=== PATIENT | male | born 1955 | race African-American/Black ===

== ENCOUNTER 2016-09-16 12:26 | Emergency (ER) | payer OTHER ==
[~2016-09-16] VITALS: Ht 180.3 cm; Wt 76.2 kg
[2016-09-16] MEDS ORDERED: IV NS 0.9% 1,000 ML ONE (12:45)
[2016-09-16] MEDS ORDERED: ONDANSETRON HCL/PF 4 MG/2 ML VIAL ONE (12:45)
[2016-09-16] MEDS ORDERED: IV SET PRIMARY 1 EA INFUS.SET MC ONE (12:45)
[2016-09-16 12:46] LABS: BASOPHILS % (AUTO) 0.8 % (0.0-2.0); DIFF TOTAL % 100 %; EOSINOPHILS # (AUTO) 0.1 /CMM (0.0-0.7); EOSINOPHILS % (AUTO) 2.3 % (0.0-6.0); HEMATOCRIT 40 % (39-51); HEMOGLOBIN 12.7 g/dL (13.5-17.5); LYMPHOCYTES # (AUTO) 1.1 /CMM (0.8-4.8); LYMPHOCYTES % (AUTO) 26.1 % (20.0-44.0); MEAN CORPUSCULAR HEMOGLOBIN 29 PG (26.0-33.0); MEAN CORPUSCULAR HGB CONC 32 g/dl (31.0-36.0); MEAN CORPUSCULAR VOLUME 92 fL (80-96); MONOCYTES # (AUTO) 0.2 /CMM (0.1-1.30); MONOCYTES % (AUTO) 5.2 % (2.0-12.0); NEUTROPHILS # (AUTO) 2.9 /CMM (1.8-8.9); NEUTROPHILS % (AUTO) 65.6 % (43.0-81.0); PLATELET COUNT (AUTO) 194 /CMM (150-450); RED BLOOD CELL COUNT(AUTO) 4.39 MIL/uL (4.5-6.0); WHITE BLOOD COUNT (AUTO) 4.3 K/uL (4.3-11.0)
[2016-09-16] MEDS ORDERED: IV SET PRIMARY PUMP SET 1 EA INFUS.SET MC ONE (12:55)
[2016-09-16] MEDS ORDERED: Thiamine 100 MG in IV D5W 50 ML IV SCH (13:00)
[2016-09-16] MEDS ORDERED: IV NS 0.9% 1,000 ML BAG IV ONE (13:00)
[2016-09-16] MEDS ORDERED: ONDANSETRON HCL/PF 4 MG/2 ML VIAL IVP ONE (13:00)
[2016-09-16 13:01] LABS: ALBUMIN 3.2 g/dL (3.4-5.0); BILIRUBIN,DIRECT 0.1 mg/dL (0.0-0.2); BILIRUBIN,TOTAL 0.2 mg/dL (0.2-1.0); CALCIUM, SERUM 8.9 mg/dL (8.5-10.1); CREATININE 0.9 mg/dL (0.6-1.3); INDIRECT BILIRUBIN 0.1 mg/dL (0.0-1.1); POTASSIUM 3.3 mmol/L (3.5-5.1); SALICYLATE 3.8 mg/dL (2.8-20.0); TOTAL PROTEIN, SERUM 7.5 g/dL (6.4-8.2)
[2016-09-16 14:35] LABS: KETONES,URINE Negative (NEGATIVE); LEUKOCYTE ESTERASE ,URINE Negative (NEGATIVE)
[2016-09-16 14:36] LABS: ADD UA MICROSCOPIC YES
[2016-09-16 14:38] LABS: WBC,URINE 0-2 /HPF (0-3)
[2016-09-16 14:39] LABS: ADD URINE CULTURE NO
[2016-09-16 14:49] LABS: CANNABINOID, URINE POSITIVE (NEGATIVE); PHENCYCLIDINE SCREEN,URINE NEGATIVE (NEGATIVE)
[2016-09-16 18:40] VITALS: BP 136/74
== END 2016-09-16 18:40 | disposition home or self-care (01) ==
LOC: EDBD 12:29 → ER 12:29
DX: R41.82 Altered mental status, unspecified (principal); E11.9 Type 2 diabetes mellitus without complications; F10.129 Alcohol abuse with intoxication, unspecified; F17.200 Nicotine dependence, unspecified, uncomplicated
CPT/HCPCS: 36415; 80048; 80076; 80305; 80329; 81001; 82962 ×2; 85025; 96365; 96375; 99284; A4606; G0480 ×2; J2405; J7030; Z7610; 81000-TC; G6039-TC; J3411; J7060

== ENCOUNTER 2017-01-11 14:37 | Emergency (ER) | payer OTHER ==
[~2017-01-11] VITALS: Ht 182.9 cm; Wt 77.1 kg
--- NOTE | 2017-01-11 14:46 | NUR ---
pt bibra to er bed 09. found at a restroom at [facility]. known heroin user. pt was found unresponsive. pinpoint pupils. 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 +etoh smell. awaiting md jimenez.
[2017-01-11] MEDS ORDERED: IV SET PRIMARY 1 EA INFUS.SET MC ONE (14:51)
[2017-01-11] MEDS ORDERED: IV NS 0.9% 1,000 ML ONE (14:51)
--- NOTE | 2017-01-11 14:51 | NUR ---
dr bautista at bedside for eval.
[2017-01-11] MEDS ORDERED: IV NS 0.9% 1,000 ML BAG IV ONE (15:00)
[2017-01-11 15:06] LABS: BASOPHILS # (AUTO) 0.1 /CMM (0.0-0.2); BASOPHILS % (AUTO) 0.8 % (0.0-2.0); EOSINOPHILS # (AUTO) 0.2 /CMM (0.0-0.7); HEMATOCRIT 44 % (39-51); HEMOGLOBIN 14.3 g/dL (13.5-17.5); LYMPHOCYTES # (AUTO) 4.9 /CMM (0.8-4.8); LYMPHOCYTES % (AUTO) 69.2 % (20.0-44.0); MEAN CORPUSCULAR HEMOGLOBIN 30 PG (26.0-33.0); MEAN CORPUSCULAR HGB CONC 33 g/dl (31.0-36.0); MEAN CORPUSCULAR VOLUME 91 fL (80-96); MONOCYTES # (AUTO) 0.4 /CMM (0.1-1.30); MONOCYTES % (AUTO) 5.5 % (2.0-12.0); NEUTROPHILS # (AUTO) 1.5 /CMM (1.8-8.9); NEUTROPHILS % (AUTO) 21.5 % (43.0-81.0); PLATELET COUNT (AUTO) 221 /CMM (150-450); RDW COEFFICIENT OF VARIATION 13.8 (11.5-15.0); RED BLOOD CELL COUNT(AUTO) 4.82 MIL/uL (4.5-6.0); WHITE BLOOD COUNT (AUTO) 7.1 K/uL (4.3-11.0)
[2017-01-11 15:15] LABS: CALCIUM, SERUM 7.8 mg/dL (8.5-10.1); POTASSIUM 3.1 mmol/L (3.5-5.1)
[2017-01-11] MEDS ORDERED: POTASSIUM CHLORIDE 20 MEQ TAB.PRT.SR PO ONE ×2 (15:27→15:30)
--- NOTE | 2017-01-11 18:10 | NUR ---
pt to radiology for head ct scan via [facility].
--- NOTE | 2017-01-11 20:58 | NUR ---
tried ambulating pt. unsteady states "im legally blind." dr bautista in to see pt for re eval.
--- NOTE | 2017-01-11 22:00 | NUR ---
IV removed. Catheter intact and site benign. Pressure and 4x4 applied to site. No bleeding noted.
[2017-01-11 22:15] VITALS: BP 141/76
--- NOTE | 2017-01-11 22:20 | NUR ---
pt is awake. sandwich and juice provided. stable vitals. will continue to monitor.
--- NOTE | 2017-01-11 23:59 | NUR ---
Juan Jose gama in [facility] - 01/12/17 at 0006 by KATINA report give to chelo bertrand.
--- NOTE | 2017-01-12 00:12 | NUR ---
Patient eloped from facility. ER MD notified.
== END 2017-01-12 00:13 | disposition left against medical advice (07) ==
LOC: ER 14:38
DX: F10.129 Alcohol abuse with intoxication, unspecified (principal); E87.6 Hypokalemia; F11.10 Opioid abuse, uncomplicated; F17.200 Nicotine dependence, unspecified, uncomplicated; R51 Headache
CPT/HCPCS: 36415; 70450-TC; 80048-TC; 85025-TC; A4606; G0480; J7030; Z7610